=== PATIENT | female | born 1995 | race Caucasian/White ===

== ENCOUNTER → 2016-03-15 | Outpatient (CLI) | payer BC, OTHER, MEDICAID ==
[~2016-03-15] VITALS: Ht 162.6 cm; Wt 72.3 kg
[~2016-03-15] MED LIST: IBU600 MG PO; PERCOCET 325 MG1 TA2 PO; PRENATAL
[2016-03-15 11:15] VITALS: BP 98/56; PULSE 82; TEMP 98.2
[2016-03-15 12:20] VITALS: BP 103/68; PULSE 78
[2016-03-15 13:45] VITALS: BP 104/58; PULSE 85
[2016-03-15 15:25] VITALS: BP 98/52; PULSE 82
[2016-03-15 16:30] VITALS: BP 100/57; PULSE 88
[2016-03-15 17:20] VITALS: BP 104/59; PULSE 80
== END ==
LOC: LDRO 11:05
DX: Z03.71 Encounter for suspected problem with amniotic cavity and membrane ruled out (principal); O09.213 Supervision of pregnancy with history of pre-term labor, third trimester; Z3A.35 35 weeks gestation of pregnancy
CPT/HCPCS: J7120

== ENCOUNTER 2016-03-18 12:37 | Inpatient (IN) | payer BC, OTHER, MEDICAID ==
[~2016-03-18] VITALS: Ht 162.6 cm; Wt 72.3 kg
[2016-03-18] VITALS (22 sets, daily range): BP systolic 89–128; BP diastolic 50–71; PULSE 59–94; TEMP 97.9
[~2016-03-18 12:37] MED LIST changes: -IBU600 MG PO; -PERCOCET 325 MG1 TA2 PO
[2016-03-18 13:19] LABS: BASO % 0.3 % (0.0-2.0); EOS # 0.1 (0.0-0.7); GRAN # 9.8 (1.4-6.5); GRAN % 73.7 % (42.2-75.2); HEMATOCRIT 40.4 % (37.0-47.0); HEMOGLOBIN 13.5 g/dl (12.5-16.0); LYMPH # 2.4 (1.2-3.4); MEAN CELL VOLUME 88 fl (80.0-100.0); MEAN CORPUSCULAR HEMOGLOBIN 29 pg (27.0-31.0); MEAN CORPUSCULAR HGB CONC 33 g/dl (33.0-37.0); MEAN PLATELET VOLUME 10.9 fl (7.4-10.4); MONO # 0.8 (0.1-0.6); MONO % 6.2 % (1.7-9.3); PLATELET COUNT 199 K/mm3 (130-400); RED BLOOD COUNT 4.59 M/mm3 (4.10-5.30); REDCELL DISTRIBUTION WIDTH-CV 13.2 % (11.5-14.5); WHITE BLOOD COUNT 13.3 K/mm3 (4.8-10.8)
[2016-03-19 01:40] VITALS: BP 87/47; PULSE 57; TEMP 98.3
[2016-03-19 07:50] LABS: HEMOGLOBIN 12.3 g/dl (12.5-16.0)
[2016-03-19 07:51] LABS: HEMATOCRIT 36.4 % (37.0-47.0)
[2016-03-19 08:08] VITALS: BP 97/49; PULSE 79; TEMP 98.3
[2016-03-19 16:30] VITALS: BP 89/50; PULSE 50; TEMP 97.4
[2016-03-19 20:00] VITALS: BP 95/50; PULSE 65; TEMP 98
[2016-03-20 08:15] VITALS: BP 82/49; PULSE 75; TEMP 97.3
[2016-03-20] MEDS ORDERED: PERCOCET 325 MG1 TA2 PO (08:50)
[2016-03-20] MEDS ORDERED: IBU600 MG PO (08:50)
== END 2016-03-20 12:58 | disposition home or self-care (01) | DRG 775 ==
LOC: LDRO 12:37 → LDR 12:40 → OB 20:15
PROVIDERS: Obstetrics & Gynecology
PROC: 10D07Z6 Extraction of Products of Conception, Vacuum, Via Natural or Artificial Opening (ICD-10-PCS; principal; 2016-03-18)
PROC: 3E033VJ Introduction of Other Hormone into Peripheral Vein, Percutaneous Approach (ICD-10-PCS; 2016-03-18)
DX: O42.013 Preterm premature rupture of membranes, onset of labor within 24 hours of rupture, third trimester (principal); O76 Abnormality in fetal heart rate and rhythm complicating labor and delivery; Z37.0 Single live birth; Z3A.35 35 weeks gestation of pregnancy
CPT/HCPCS: J2540; J2590; J7120